=== PATIENT | male | born 1985 | race Caucasian/White ===

== ENCOUNTER 2019-01-19 11:10 | Observation (INO) ==
[2019-01-19] MEDS ORDERED: Naloxone 0.4 MG/ML INJ IVP PRN (14:13)
[2019-01-19] MEDS ORDERED: D5% in 0.9% NACL 1,000 ML IVC SCH (14:15)
[2019-01-19 14:40] LABS: Basophils % 0.3 %; Eosinophils % 0.3 %; Hematocrit 45.7 % (37.5-50.1); Hemoglobin 15.9 g/dL (12.9-16.9); Immature Granulocytes % 0.3 % (0-4); Lymphocytes # 2.1 K/mcL (0.6-4.6); Lymphocytes % 14.5 %; Mean Corpuscular HGB Conc 34.8 g/dL (31.6-35.5); Mean Corpuscular Hemoglobin 31.9 pg (28.0-33.3); Mean Corpuscular Volume 91.6 fL (83.0-100.0); Mean Platelet Volume 9.6 fL (9.4-12.4); Monocytes # 0.8 K/mcL (0.0-1.3); Monocytes % 5.6 %; Neutrophils # 11.6 K/mcL (1.6-8.9); Platelet Count 274 K/mcL (140-400); Red Blood Count 4.99 M/mcL (4.19-5.50); Red Cell Distribution Width 12.4 % (11.5-14.5)
[2019-01-19] MEDS: *HR* HYDROcodone/Acet 5/325 mg TABLET PO PRN ×2 (14:44→21:04)
[2019-01-19 15:00] LABS: Activated Partial Thrombo Time 29.5 Seconds (26.0-36.0); Magnesium 2.3 mg/dL (1.6-2.6)
[2019-01-19 15:01] LABS: BUN/Creatinine Ratio 10 (6-26); Blood Urea Nitrogen 10 mg/dL (6-20); Calcium 9.6 mg/dL (8.6-10.3); Carbon Dioxide 26 mEq/L (23-29); Chloride 105 mEq/L (98-107); Glucose 99 mg/dL (70-105); Osmolality,Calculated 287 (280-300); Potassium 3.7 mEq/L (3.5-5.1); Sodium 139 mEq/L (136-145); eGFR For Non-African Americans > 60 (> 60)
--- NOTE | 2019-01-19 15:09 | Internal Med History&Physical ---
Date of Encounter: 01/19/19 Time of Encounter: 15:04 Internal Medicine - H&P: HPI Chief complaint: left big toe injury Admitted From: Home Plans for Post Hospital Care: Home History of present illness: Mr. Shrestha is a 33 year old male No significant PMH patient presented to the ed after sustaining an injury on his left big toe. patient reports he was mowing the lawn today and he slipped and fell. 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 Past Med Surg Social Fam HX - Past Medical History Medical history: no medical history Psychiatric history: no psych history - Past Surgical History Surgical History: appendectomy Additional surgical history: hernia repair - Social History Smoking Status: Current every day smoker Smokeless Tobacco Status: No Alcohol use: unknown Drug use: none Internal Medicine - H&P: Meds No Known Home Drugs 01/19/19 [History] Allergy/AdvReac Type Severity Reaction Status Date / Time No Known Allergies Allergy Verified 01/19/19 09:51 All Systems PM: A 10-system review of systems was performed and is negative for pertinent findings except as documented above in the HPI. - Constitutional Constitutional: no chills, no fever(s), no falls, no weakness - EENT Nose, mouth and throat: no dental pain - Cardiovascular Cardiovascular ROS IM: no chest pain, no edema, no lightheadedness, no orthopnea, no palpitations - Respiratory Respiratory: no cough - Gastrointestinal Gastrointestinal: no abdominal pain, no melena, no nausea, no vomiting - Genitourinary Genitourinary ROS male: no dysuria, no nocturia, no urinary hesitancy - Musculoskeletal Musculoskeletal ROS IM: no muscle cramps, no muscle weakness - Integumentary Integumentary IM: no erythema - Neurological Neurological ROS: no behavioral changes, no headache(s) - Psychiatric Psychiatric: no anxiety, no hopelessness - Endocrine Endocrine IM: no cold intolerance, no excessive sweating - Hematologic/Lymphatic Hematologic/Lymphatic: no lymphadenopathy - Allergic/Immunologic Allergic/Immunologic: no wheezing, no GI upset with certain foods - Constitutional Vitals: Temp Pulse Resp BP Pulse Ox 97.9 F 83 20 118/71 98 01/19/19 13:44 01/19/19 13:44 01/19/19 13:44 01/19/19 13:44 01/19/19 13:44 Exam: Vitals: Reviewed. General: Alert and oriented x4. In moderate distress due to toe pain HEENT: EOM, pupils equal, round and reactive. Cardiovascular: RRR, normal S1 & S2, no rubs, murmurs or gallops. Lungs: CTA b/l, no wheezes or crackles. Abdomen: Soft, non-tender, no rigidity. Extremities: left toe laceration Neurological: Normal cognition and motor skills. Rest of the physical exam is non contributory Internal Med - H&P Results - Labs CBC & Chem 7: 01/19/19 14:26 01/19/19 14:26 Labs: Short CBC 01/19/19 Range/Units 14:26 WBC 14.7 H (4.3-11.1) K/mcL Hgb 15.9 (12.9-16.9) g/dL Hct 45.7 (37.5-50.1) % Plt Count 274 (140-400) K/mcL Neutrophils # 11.6 H (1.6-8.9) K/mcL BMP 01/19/19 14:26 Sodium 139 Potassium 3.7 Chloride 105 Carbon Dioxide 26 BUN 10 Creatinine 0.99 Glucose 99 Calcium 9.6 - Diagnostic Studies Other Images Status: image reviewed by me (foot x-ray. fracture of the first phalanx ) - Assessment and Plan (1) Open fracture of distal phalanx Current Visit: No Status: Acute Assessment and plan: XR/XR foot 3V LT IMPRESSION: Comminuted fracture and laceration along the tuft of the 1st distal phalanx, more pronounced medially. Plan Lamp Developer consulted NPO started on gentle IV hydration for maintenance fluids Homer 5-325mg/PO 1tab Q6HR PRN for pain control (2) DVT prophylaxis Current Visit: Yes Status: Acute Assessment and plan: patient with low risk of dvt. encourage ambulation. (3) Leukocytosis Current Visit: Yes Status: Acute Assessment and plan: reactive due to pain. will monitor Qualifiers: Leukocytosis type: unspecified Qualified Code(s): D72.829 - Elevated white blood cell count, unspecified - Time Spent With Patient Total time spent is greater than 50% in coordination of care (as documented) at patient's floor/unit and/or counseling patient: Greater than 35 minutes (40)
--- NOTE | 2019-01-19 16:42 | Podiatry Consult Note ---
Date of Encounter: 01/19/19 Time of Encounter: 16:00 Assessment and Plan (1) Open fracture of distal phalanx Current visit: No Status: Acute ASSESSMENT: open fracture of the left great toe - DOI 01/19/19 X-ray images were obtained at [facility]. These were reviewed. There is extensive soft tissue damage to the distal aspect of the first toe. There is no visible bone however assessment is limited as patient is unable to tolerate pain to palpation. Pulses are palpable dorsalis pedis and posterior tibial blood flow to area is adequate. At this time we will plan to take patient to surgery at 10 AM in the morning. We will do a repair of open fracture. Dr. Aparicio will perform surgery. This was covered with patient at bedside. Agrees and denies any further questions Due to surgery being at 10 AM in the morning patient was offered a nerve block of the toe. Patient declined at this time. Patient states that after administration of the [place] he is able to tolerate pain. 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 Xray obtained 01/19 shows Comminuted fracture and laceration along the tuft of the 1st distal phalanx, more pronounced medially. History of Present Illness HPI: Mr. Shrestha is a 33 year old male who presents today following a traumatic incident with a lawnmower to the left great toe. Patient was evaluated at [facility] and transferred to the [facility]. Patient reports he was mowing and slipped down a hill the mower came up and landed on top of his toe. Patient denies any past medical history. Patient denies any IV drug use. Patient denies any alcohol use. Patient states he smokes half a pack of cigarettes a day. Patient denies any fevers, chills, nausea vomiting or flulike symptoms. Patient rates pain 9 out of 10. Patient is tearful on entering the room. Patient states he is in severe pain. Hospitalist services at bedside and providing with pain medication orders. Past Med Surg Social Fam HX - Past Medical History Medical history: no medical history Psychiatric history: no psych history - Past Surgical History Surgical History: appendectomy Additional surgical history: hernia repair - Social History Smoking Status: Current every day smoker Smokeless Tobacco Status: No Alcohol use: unknown Drug use: none Medications and Allergies No Known Home Drugs 01/19/19 [History] Allergy/AdvReac Type Severity Reaction Status Date / Time No Known Allergies Allergy Verified 01/19/19 20:18 All Systems Reviewed: As per history of present illness Physical Exam - Constitutional Vitals: Temp Pulse Resp BP Pulse Ox 97.9 F 83 20 118/71 98 01/19/19 13:44 01/19/19 13:44 01/19/19 13:44 01/19/19 13:44 01/19/19 13:44 Exam: General Examination: CONSTITUTIONAL: Alert, oriented, in no acute distress, non-toxic. EXTREMITIES: CFT 3 seconds all toes. Edema +1 and pedal pulses palpable. SKIN: Skin with decreased turgor, decreased subcutaneous tissue, skin thin and shiny with trophic changes associated with comorbidities as described in history.. see below NEUROLOGIC: Grossly intact epicritic and vibratory sensation from toes to tibia, evidenced with use of monofilament 5.07 and tuning fork at 128 CPS. Patient complains of paresthesias and dysesthesias. There is no clinical evidence of loss of protective sensation. Traumatic: Left great toe, distal border- traumatic injury noted with amputation and sheering to the distal border of toe extending medially. There is darkening of skin margins. There is bleeding noted from trauma site. Wound margins cannot be approximated without surgical intervention due to loss of tissue. There is no visible bone noted on exam. There is severe pain with minimal palpation of toe. Results - Labs Result Diagrams: 01/19/19 14:26 01/19/19 14:26 Labs: Abnormal lab results WBC 14.7 K/mcL (4.3-11.1) H 01/19/19 14:26 11.6 K/mcL (1.6-8.9) H 01/19/19 14:26 H & H 01/19/19 Range/Units 14: Hgb 15.9 (12.9-16.9) g/dL Hct 45.7 (37.5-50.1) % All other labs normal. Consult Discharge Plan - Plan Referrals: NONE,PCP [Primary Care Provider] -
[2019-01-19] MEDS ORDERED: traMADol 50 MG TABLET PO ONE ×2 (17:00→19:55)
--- NOTE | 2019-01-19 17:15 | Anesthesia Evaluation PreOp ---
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 HX Other Medical History: Denies Any Significant HX Anesthesia History: No Prior Anesthetic Complications, Past Anesthesia Alcohol Use: unknown Drug use: none Medications and Allergies No Known Home Drugs 01/19/19 [History] Allergy/AdvReac Type Severity Reaction Status Date / Time No Known Allergies Allergy Verified 01/19/19 09:51 - Meds/Allergy Pre-op Review Medications Reviewed: Yes Allergies Reviewed: Yes Beta Blockers on Current Med List: No Anesthesia Results - Labs 01/19/19 14:26 01/19/19 14:26 Anesthesia Exam Vital Signs/O2 Sat, Most Current Temp Pulse Resp BP Pulse Ox 97.9 F 83 20 118/71 98 01/19/19 13:44 01/19/19 13:44 01/19/19 13:44 01/19/19 13:44 01/19/19 13:44 Height: 6'2''/1.88m Weight: 190 lbs/86.2 kg NPO (# of Hours): 8 Pain Scale: 6 Pain Scale Used: Numeric (1 - 10) - HEENT Pupil (Motor): EOMI Mallampati: II Teeth: Normal Oral Opening: Greater than 3 - LIQUEFACTION PLANT OPERATOR LOC: Oriented LIQUEFACTION PLANT OPERATOR Motor: Normal RUE, Normal LUE, Normal RLE, Normal LLE, Normal Face LIQUEFACTION PLANT OPERATOR Sensory: Normal: RUE, LUE, RLE, LLE, Face - Cardiac Rhythm: Regular Murmur: None - Pulmonary Breath Sounds: bilateral Clear Respiratory Effort: Symmetrical Anesthesia Assess/Plan ASA Score: 2 Level of consciousness: Cooperative, Oriented, Tranquil Anesthetic Plan: General Monitoring Plan: Standard Monitors Recovery Plan: PACU
[2019-01-19] MEDS ORDERED: traMADol 50 MG TABLET PO PRN ×2 (19:56→20:04)
[2019-01-20] MEDS: *HR* HYDROcodone/Acet 5/325 mg TABLET PO PRN ×3 (05:13→17:33)
[2019-01-20] MEDS ORDERED: Lidocaine -MPF 2% 2 ML VIAL ONE (09:46)
[2019-01-20] MEDS ORDERED: *HR* Propofol 200 MG/20 ML VIAL IVP ONE (09:46)
[2019-01-20] MEDS ORDERED: *HR* Midazolam HCl 2 MG/2 ML VIAL ONE (09:46)
[2019-01-20] MEDS ORDERED: *HR* FentaNYL (PF) 100 MCG/2 ML VIAL ONE (09:46)
[2019-01-20] MEDS ORDERED: Dexamethasone 4 MG/ML VIAL ONE (09:46)
[2019-01-20] MEDS ORDERED: Ondansetron 4 MG/2 ML VIAL ONE (09:46)
[2019-01-20] MEDS ORDERED: Pregabalin 75 MG CAPSULE ONE (10:01)
[2019-01-20] MEDS ORDERED: Acetaminophen IV 1,000 MG/100 ML INFUS..BTL ONE (10:01)
[2019-01-20] MEDS ORDERED: Famotidine 20 MG/2 ML VIAL ONE (10:02)
[2019-01-20] MEDS ORDERED: NS INTRAART ONE (10:05)
[2019-01-20] MEDS ORDERED: ROPIVACAINE INTRAART ONE (10:05)
[2019-01-20] MEDS ORDERED: Clindamycin 900 MG/50 ML 900 MG/50 ML IV.SOLN IVPB ONE ×2 (10:56→11:33)
--- NOTE | 2019-01-20 12:39 | Orthopedic Operative Note ---
Date of procedure: 01/20/19 Pre-op diagnosis: #1: Open fracture left great toe Post-op diagnosis: same Procedure: 01/20/19 12:35 #1: Debridement of open fracture left great toe #2: Adjacent tissue transfer of left great toe #3: Application of PuraPly antimicrobial wound matrix/graft Implants: None Complications: None Anesthesia: local (Ropivacaine), other (General anesthesia per LMA) Surgeon: Don Aparicio Was there an assignment desk assistant present: No Estimated blood loss (cc): 5 Tourniquet Time (Minutes): 26 Specimen: Bone fragments phalanx 1 toe left foot Condition: stable Disposition: PACU Procedure in Detail: 01/20/19 12:39 Details in summary of procedure: Patient was brought to surgical suite. Sign in procedure was performed. Patient transferred surgical table positioned properly safely securely. Left leg elevated on a foam block. Anesthetic timeout was taken. Patient underwent smooth induction general anesthesia per LMA. At that point left ankle was prepped with alcohol 3 times modified ankle block was carried out with local anesthetic ropivacaine without epinephrine. The left foot was then identified as the site of surgery again in a complete rolled cast padding was placed above the malleolar line followed by application ankle tourniquet. Left foot was then prepped and draped in usual sterile manner. Surgical timeout was taken. We inspected the left great toe with a laceration being parallel to the medial aspect of the left great toe from proximal to distal from the IP joint to the distal lateral aspect of the great toe. Wound was then debrided surgically with a pickup and 15 scalpel blade and scissor the distal portion of the phalanx of the left great toe was noted to have fragments that were loose. These fragments were then identified. The periosteum was then reflected off the distal phalanx dorsally medially and laterally and plantarly and osteotomy was then performed removing the distal one half of the phalanx to ensure that all nonviable bone was resected. Remaining bone was remodeled using a rongeur and a Osvaldo nasal rasp. The wound was flushed with copious amounts sterile saline. Portions the soft tissue and skin were already degloved prior to the presentation the OR and were not recoverable. Incision was then made laterally on the distal aspect of the toe to an adequate exposure prior to the closure to mobilize tissue to create an adjacent tissue transfer from the plantar proximal medial aspect of the soft tissue and transferred to the dorsal aspect covering the medial the fact. Proximal defect was then reanastomosed with 4-0 Prolene and 3-0 Prolene. At that point the remainder this laceration/injury was mobilized and sutured with 3-0 Prolene, and 4-0 Prolene as well. Because of the epidermal lost to the proximal portion of the wound PuraPly antimicrobial wound matrix was applied to the proximal wound as well as the distal incision and repair. Prior to closure the wound was irrigated copiously with sterile saline. No bone chips or debris were found to be wound was completely clean. It was then suctioned and sponged appropriately. An sprayed with PRP prior to closure. The tourniquet was inflated to 250 mmHg for a pproximately 26 minutes. The tourniquet was deflated and immediate hyperemic response was noted to all toes prior to application of the dressing. No complications. Estimated blood loss less than 5 mL. Patient sent to PACU in good condition with vital signs stable.
--- NOTE | 2019-01-20 12:58 | Anesthesia Evaluation Post Op ---
Date of Encounter: 01/20/19 Time of Encounter: 13:00 - Vital Signs Vital Signs: Vital Signs/O2 Sat/Glucose, Most Current Temp Pulse Resp BP Pulse Ox 01/20/19 12:55 97.8 F 50 16 103/75 98 01/20/19 12:45 97.8 F 55 12 105/75 100 01/20/19 12:35 97.8 F 55 12 101/73 100 - Lungs Lungs: Clear Ascult./Percussion - Airway Airway: Non-obstructed - Cardiovascular Regular Rate - Mental Status Mental Status: Alert & Oriented, Answers Appropriately - Pain Pain Scale: 0 - Nausea Vomiting Nausea Vomiting: Not Present - Hydration Hydration: Ice chips - Discharge PostOp Status: Transfer Patient to floor
[2019-01-20] MEDS ORDERED: D5% in 0.9% NACL 1,000 ML IVC SCH (13:15)
[2019-01-20] MEDS ORDERED: traMADol 50 MG TABLET PO PRN (13:15)
[2019-01-20] MEDS ORDERED: Naloxone 0.4 MG/ML INJ IVP PRN (13:15)
--- NOTE | 2019-01-20 17:54 | Internal Med Progress Note ---
Hospitalist Progress Note - Encounter Date of Encounter: 01/20/19 Time of Encounter: 07:00 - Subjective Interval History: Patient is seen and examined at the bedside, patient stated pain is better with pain medications. But unable to bear any weight when he dropped his legs, pain is 10 out of 10 constant, sharp . The dressing is soaked by blood He is awaiting for surgery - Exam Vitals: Temp Pulse Resp BP Pulse Ox 98.2 F 74 16 115/71 98 01/20/19 17:27 01/20/19 17:27 01/20/19 17:27 01/20/19 17:27 01/20/19 17:27 Exam: Vitals: Reviewed. General: Alert and oriented x4. In moderate distress due to toe pain HEENT: EOM, pupils equal, round and reactive. Cardiovascular: RRR, normal S1 & S2, no rubs, murmurs or gallops. Lungs: CTA b/l, no wheezes or crackles. Abdomen: Soft, non-tender, no rigidity. Extremities: left toe laceration Neurological: Normal cognition and motor skills. Rest of the physical exam is non contributory DVT Prophylaxis: SCDs - Summary of Assessment and Plan Summary of Assessment and Plan: (1) Open fracture of distal phalanx Current Visit: No Status: Acute Assessment and plan: XR/XR foot 3V LT IMPRESSION: Comminuted fracture and laceration along the tuft of the 1st distal phalanx, more pronounced medially. Plan Outsole Tacker consulted NPO started on gentle IV hydration for maintenance fluids [place] 5-325mg/PO 1tab Q6HR PRN for pain control (2) DVT prophylaxis Current Visit: Yes Status: Acute Assessment and plan: place SCD (3) Leukocytosis, follow up am Current Visit: Yes Status: Acute Assessment and plan: reactive due to pain. will monitor - Time Spent with Patient Total time spent is greater than 50% in coordination of care (as documented) at patient's floor/unit and/or counseling patient: Greater than 35 minutes Plan of Care Discussed with: patient Internal Medicine: Result - Labs CBC & Chem 7: 01/19/19 14:26 01/19/19 14:26 - ABG Interpretation ABG results: PT/INR, D-dimer PT 11.0 Seconds (9.4-12.1) 05/08/19 14:26 Consult Discharge Plan - Plan Referrals: NONE,PCP [Primary Care Provider] -
[2019-01-20] MEDS: Cefepime HCl 1,000 MG in 0.9 % Sodium Chloride Mini Bag 100 ML IVPB SCH (19:03)
[2019-01-20] MEDS ORDERED: *HR* OxyCODONE Immed Rel 5 MG TABLET PO ONE (20:57)
[2019-01-21] MEDS: *HR* HYDROcodone/Acet 5/325 mg TABLET PO PRN ×3 (00:14→10:51)
[2019-01-21] MEDS: Cefepime HCl 1,000 MG in 0.9 % Sodium Chloride Mini Bag 100 ML IVPB SCH ×2 (02:23→10:18)
[2019-01-21] MEDS ORDERED: traMADol 50 MG TABLET PO ONE (03:05)
[2019-01-21 05:47] LABS: Basophils % 0.1 %; Hematocrit 42.9 % (37.5-50.1); Hemoglobin 14.5 g/dL (12.9-16.9); Immature Granulocytes % 0.5 % (0-4); Lymphocytes # 1.5 K/mcL (0.6-4.6); Lymphocytes % 10.3 %; Mean Corpuscular HGB Conc 33.8 g/dL (31.6-35.5); Mean Corpuscular Hemoglobin 31.5 pg (28.0-33.3); Mean Corpuscular Volume 93.1 fL (83.0-100.0); Mean Platelet Volume 10.2 fL (9.4-12.4); Monocytes # 1.3 K/mcL (0.0-1.3); Monocytes % 8.4 %; Neutrophils # 12.1 K/mcL (1.6-8.9); Platelet Count 263 K/mcL (140-400); Red Blood Count 4.61 M/mcL (4.19-5.50); Red Cell Distribution Width 12.3 % (11.5-14.5); Segmented Neutrophils % 80.7 %
[2019-01-21 06:10] LABS: BUN/Creatinine Ratio 9 (6-26); Blood Urea Nitrogen 8 mg/dL (6-20); Calcium 9.5 mg/dL (8.6-10.3); Carbon Dioxide 27 mEq/L (23-29); Chloride 104 mEq/L (98-107); Glucose 114 mg/dL (70-105); Magnesium 2.2 mg/dL (1.6-2.6); Osmolality,Calculated 287 (280-300); Potassium 3.9 mEq/L (3.5-5.1); Sodium 139 mEq/L (136-145); eGFR For Non-African Americans > 60 (> 60)
--- NOTE | 2019-01-21 09:51 | Podiatry Progress Note ---
Date of Encounter: 01/21/19 Time of Encounter: 09:00 - Assessment and Plan (1) Open fracture of distal phalanx Status: Acute ASSESSMENT: open fracture of the left great toe - DOI 01/19/19 s/p #1: Debridement of open fracture left great toe #2: Adjacent tissue transfer of left great toe #3: Application of PuraPly antimicrobial wound matrix/graft PLAN: ok to discharge from podiatry standpoint Recommend discharge on 7 days of oral Keflex and 5 days of 5mg [place] every 4-6 hours as needed for pain, alternate with 400-800mg Ibuprofen Q8H Leave dressing intact Wound was cleansed with saline at bedside today, new thick layer of adaptic applied, 4x4 and kerlix bulk dressing To remain intact until seen in office Will need appointment with in clinic in 1 week, please make prior to discharge Protective weight bearing, try to place weight to heel Calling bracing department to see if a CAM boot will be covered for protection- if not will have surgical shoe to bedside Call office with any fevers, chills, n/v or fls Elevation of WBC likely reactive from surgical intervention. Subjective Interval history: Patient POD #1: Debridement of open fracture left great toe #2: Adjacent tissue transfer of left great toe #3: Application of PuraPly antimicrobial wound matrix/graft Resting comfortably at bedside. Denies any known issues. States pain is tolerable. States he hit the toe last night and it bled a little. Patient denies any fevers, chills, n/v or fls. Denies any calf pain or sob Objective - Vital Signs Vital Signs: Vital Signs Temp Pulse Resp BP Pulse Ox 01/21/19 07:05 98.2 F 71 15 123/73 98 01/21/19 02:31 65 111/65 01/20/19 23:24 98.9 F 81 16 123/62 98 01/20/19 20:55 84 124/72 01/20/19 19:06 97.8 F 67 16 114/78 98 01/20/19 17:27 98.2 F 74 16 115/71 98 01/20/19 15:20 97.7 F 69 14 116/72 99 01/20/19 14:15 97.7 F 60 12 114/70 98 01/20/19 13:45 97.7 F 60 14 124/58 100 01/20/19 13:15 97.6 F 60 15 106/58 100 01/20/19 13:05 97.9 F 54 16 102/67 98 01/20/19 12:55 97.8 F 50 16 103/75 98 01/20/19 12:45 97.8 F 55 12 105/75 100 01/20/19 12:35 97.8 F 55 12 101/73 100 Intake and Output 01/20/19 01/21/19 01/21/19 23:59 07:59 15:59 Intake Total 600 / 600 100 / 100 Balance 600 / 598 100 / 100 Intake: IV Fluids 100 / 100 100 / 100 Maxipime 1,000 MG In 0.9 % 100 / 100 100 / 100 Sodium Chloride (Mini-Bag +) 100 ML @ 200 mls/hr IVPB Q8H MAX Rx#:[id number] Oral 500 / 500 Other: # Voids 1 - Exam Exam: CONSTITUTIONAL: Awake alert and oriented VASCULAR: pulses palpable, warm toes to tibia, cap refill <3 seconds to toe NEUROLOGICAL: Intact sensation with light touch to toes s/p closure of traumatic injury of left great toe with amputation of distal fragments of left great toe and application of skin graft Healing well without complication at this time. Mlld surrounding edema- minimal erythema. Dry bleeding noted to toe. Graft intact without complication. Incision line well approximated without evidence of dehiscence. No drainage noted. No appearance of bacterial infection. Patient reports pain with minimal palpation. - Lab Result Diagrams: 01/21/19 04:31 01/21/19 04:31 Labs: Abnormal lab results WBC 15.0 K/mcL (4.3-11.1) H 01/21/19 04:31 12.1 K/mcL (1.6-8.9) H 01/21/19 04:31 Glucose 114 mg/dL (70-105) H 01/21/19 04:31 Consult Discharge Plan - Plan Additional Instructions: Leave dressing intact Wound was cleansed with saline at bedside today, new thick layer of adaptic applied, 4x4 and kerlix bulk dressing To remain intact until seen in office Protective weight bearing, try to place weight to heel Call office with any fevers, chills, n/v Referrals: Whitley Iniguez, BUNCHER OPERATOR [Partnered Physician] - 01/28/19 10:40 am NONE,PCP [Primary Care Provider] - Prescriptions: Cephalexin [Keflex] 500 mg PO QID 7 Days #28 capsule HYDROcodone/Acet 5/325 mg [[place] 5-325 mg] 1 tab PO Q4HR PRN 5 Days #30 tablet PRN Reason: Moderate to Severe Pain
[2019-01-21 11:44] VITALS: BP 111/70
--- NOTE | 2019-01-21 12:21 | Discharge Summary ---
Orders not resulted at time of discharge: Pending orders 01/20/19 12:16 Surgical Pathology [PTH] Routine Date of Encounter: 01/21/19 Time of Encounter: 12:10 Hospital course: Mr. Shrestha is a 33 year old male who has No significant PMH, presented to the ed after sustaining an injury on his left big toe. patient reports he was mowing the lawn today and he slipped and fell. 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 Podiatry was consulted, patient had Debridement of open fracture left great toe and Adjacent tissue transfer of left great toe, Application of PuraPly antimicrobial wound matrix/graft, podiatry is ok to discharge on 7 days of oral Keflex and 5 days of 5mg [place] every 4-6 hours as needed for pain, alternate with 400-800mg Ibuprofen Q8H, Leave dressing intact Will need appointment with in clinic in 1 week, please make prior to discharge Protective weight bearing, try to place weight to heel patient is stable for discharge Time spent discussing smoking cessation with patient: 3 to 10 minutes - Time Spent with Patient Total time spent providing and/or coordinating discharge services: Time spent: Less than 30 minutes - Discharge Medications Prescriptions: New Cephalexin [Keflex] 500 mg PO QID 7 Days #28 capsule HYDROcodone/Acet 5/325 mg [[place] 5-325 mg] 1 tab PO Q4HR PRN 5 Days #30 tablet PRN Reason: Moderate to Severe Pain Home Medications: Cephalexin [Keflex] 500 mg PO QID 7 Days #28 capsule 01/21/19 [Rx] HYDROcodone/Acet 5/325 mg [[place] 5-325 mg] 1 tab PO Q4HR PRN 5 Days #30 tablet 01/21/19 [Rx] Allergies/Adverse Reactions: Allergy/AdvReac Type Severity Reaction Status Date / Time No Known Allergies Allergy Verified 01/19/19 20:18 Date of admission: 01/19/19 13:38 Primary care physician: PCP NONE - Constitutional Vitals: Temp Pulse Resp BP Pulse Ox 97.9 F 83 16 111/70 95 01/21/19 11:44 01/21/19 11:44 01/21/19 11:44 01/21/19 11:44 05/10/19 11:44 General appearance: Present: A&O X 3 Exam: Vitals: Reviewed. General: Alert and oriented x4. In moderate distress due to toe pain HEENT: EOM, pupils equal, round and reactive. Cardiovascular: RRR, normal S1 & S2, no rubs, murmurs or gallops. Lungs: CTA b/l, no wheezes or crackles. Abdomen: Soft, non-tender, no rigidity. Extremities: left toe laceration Neurological: Normal cognition and motor skills. Rest of the physical exam is non contributory - Patient Status Disposition: Home, Self-Care Condition: Good Overall status at discharge: patient is back to baseline - Discharge Instructions Follow Up With: NONE,PCP [Primary Care Provider] -
[2019-01-21] MEDS ORDERED: Cefepime HCl 1,000 MG in 0.9 % Sodium Chloride Mini Bag 100 ML IVPB SCH (18:00)
== END 2019-01-21 14:25 | disposition home or self-care (01) ==
LOC: 3NENU → SUATTDRO 13:38
PROVIDERS: ADMIT Student in an Organized Health Care Education/Training Program; ATTEND Hospitalist